=== PATIENT | female | born 1955 | race Caucasian/White ===

== ENCOUNTER → 2020-01-13 | Outpatient (CLI) | payer OTHER ==
[~2020-01-13] MED LIST: A THRU Z SELEC1 EAC3 PO; ALDACTONE50 MG PO; B-COMPLEX-VITA1 EACH PO; FLAGYL500 MG PO; FLAX OIL1000 MG PO; HYDROXYCHLOROQ200 M1 PO; LEVAQUIN 500 M500 M2 PO; LISINOPRIL20 MG PO; NAPROSYN250 MG PO; PAXIL20 MG PO; PRILOSEC 20 MG20 MG PO; SENNA-S TABLET1 EACH PO; VIACTIV TABLET1 EAC2 PO; VICODIN 5-5001 EACH PO; VITAMINC500 PO
== END ==
LOC: SJCVC 15:10
PROVIDERS: ATTEND Internal Medicine Cardiovascular Disease
DX: R94.31 Abnormal electrocardiogram [ECG] [EKG] (principal); I44.4 Left anterior fascicular block; I71.2 Thoracic aortic aneurysm, without rupture; I10 Essential (primary) hypertension; D68.9 Coagulation defect, unspecified; M32.9 Systemic lupus erythematosus, unspecified; E78.1 Pure hyperglyceridemia; Z79.899 Other long term (current) drug therapy

== ENCOUNTER → 2020-01-30 | Outpatient (CLI) | payer OTHER | LOC: CAT 01-02 13:13 | PROVIDERS: ATTEND Internal Medicine Cardiovascular Disease | DX: Z13.6 Encounter for screening for cardiovascular disorders (principal); I25.10 Atherosclerotic heart disease of native coronary artery without angina pectoris; E78.00 Pure hypercholesterolemia, unspecified ==

== ENCOUNTER → 2020-06-11 | Outpatient (CLI) | payer OTHER | LOC: SJCVCIMAG 15:47 | PROVIDERS: ATTEND Internal Medicine Cardiovascular Disease | DX: R93.1 Abnormal findings on diagnostic imaging of heart and coronary circulation (principal); I10 Essential (primary) hypertension; E78.5 Hyperlipidemia, unspecified; M32.9 Systemic lupus erythematosus, unspecified; R42 Dizziness and giddiness ==

== ENCOUNTER 2020-07-09 14:41 | Emergency (ER) | payer OTHER ==
[~2020-07-09] VITALS: Ht 160 cm; Wt 71.7 kg
[2020-07-09 16:05] LABS: ABSOLUTE NEUTROPHILS 8.5 thou/uL (1.4-8.2); BASOPHILS 0.7 % (0.0-2.0); EOSINOPHILS 0.4 % (0.0-3.0); HEMATOCRIT 36.7 % (37.0-47.0); HEMOGLOBIN 12.1 gm/dL (12.0-15.0); LYMPHOCYTES 19.8 % (24.0-44.0); MCH 33.8 pg (26.0-34.0); MCV 102.4 fL (80.0-100.0); MONOCYTES 12.8 % (1.0-8.0); PLATELET COUNT 348 thou/uL (150-400); POLYS 66.3 % (36.0-66.0); RBC 3.58 mil/uL (4.20-5.00); RDW 13.2 % (10.5-14.5); WBC 12.9 thou/uL (4.0-11.0)
[2020-07-09 16:12] LABS: ANION GAP 10 mmol/L (7-16); BUN 21 mg/dL (7-18); CALCIUM 8.9 mg/dL (8.5-10.1); CHLORIDE 102 mmol/L (98-107); CO2 25 mmol/L (21-32); CREATININE 0.9 mg/dL (0.6-1.0); GLUCOSE 89 mg/dL (74-106); POTASSIUM 3.9 mmol/L (3.5-5.1); SODIUM 137 mmol/L (136-145)
[2020-07-09 16:22] LABS: ALBUMIN 3.3 g/dL (3.4-5.0); SGOT 20 U/L (15-37); SGPT 36 U/L (14-59); TOTAL BILIRUBIN 0.4 mg/dL (0.2-1.0); TROPONIN-I <0.06 ng/mL (<0.06)
[2020-07-09 19:15] VITALS: BP 130/70
--- NOTE | 2020-07-10 08:44 | EKG ---
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 LIZ : 1955 Requested By: Donny Gomez Order Number: [id number] MD: Jose A Gar Measurements Intervals [place] Rate: 83 P: 60 [place]: 159 QRS: -36 QRSD: 102 T: 8 QT: 403 QTc: 474 Interpretive Statements Sinus rhythm Left axis deviation Compared to ECG 07/09/2020 14:52:02 Left-axis deviation now present Atrial premature complex(es) no longer present Left ventricular hypertrophy no longer present Electronically Signed On 07-10-2020 8:44:00 CDT by Jose A Gar [email or web address] <ELECTRONICALLY SIGNED> By: Jose A Gar MD, [facility] 07/10/20 0844 33 33 Jose A Gar MD, [facility] /EPI
--- NOTE | 2020-07-10 08:44 | EKG ---
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1955 Requested By: Donny Gomez Order Number: [id number] MD: Jose A Gar Measurements Intervals [place] Rate: 73 P: 42 [place]: 144 QRS: -38 QRSD: 95 T: 8 QT: 409 QTc: 451 Interpretive Statements Sinus rhythm Atrial premature complex Abnormal R-wave progression, early transition Left ventricular hypertrophy No previous ECG available for comparison Electronically Signed On 07-10-2020 8:43:49 CDT by Jose A Gar [email or web address] <ELECTRONICALLY SIGNED> By: Jose A Gar MD, [facility] 07/10/20 [id number] [id number] [id number] Jose A Gar MD, [facility] /EPI
== END 2020-07-09 19:17 | disposition home or self-care (01) ==
LOC: ER 14:41
PROVIDERS: Physician Assistant
DX: D86.9 Sarcoidosis, unspecified (principal); I10 Essential (primary) hypertension; E78.00 Pure hypercholesterolemia, unspecified; F41.0 Panic disorder [episodic paroxysmal anxiety]; K21.9 Gastro-esophageal reflux disease without esophagitis; M06.9 Rheumatoid arthritis, unspecified; Z90.49 Acquired absence of other specified parts of digestive tract; Z79.899 Other long term (current) drug therapy; Z79.2 Long term (current) use of antibiotics; Z91.041 Radiographic dye allergy status